=== PATIENT | female | born 1950 | race Caucasian/White ===

== ENCOUNTER 2017-09-26 09:57 | Outpatient (CLI) | payer MEDICARE, BC ==
--- NOTE | 2017-09-27 09:15 | MMO ---
BILATERAL DIGITAL SCREENING MAMMOGRAMS: History: 67-year-old female presents for digital screening mammography. Comparison: 09-22-16, 08-12-15, 07-25-14, 07-25-13 This study is interpreted with the assistance of computer aided detection. FINDINGS: Scattered areas of fibroglandular density are noted bilaterally. There are some stable typically regan gn calcifications. No direct or indirect evidence of malignancy. IMPRESSION: BIRADS category 2 - benign findings. Continues routine screening. POS: [facility]
== END 2017-09-26 09:58 | disposition home or self-care (01) ==
LOC: SCSMAMMO 09:57
PROVIDERS: ATTEND Obstetrics & Gynecology
DX: Z12.31 Encounter for screening mammogram for malignant neoplasm of breast (principal)
CPT/HCPCS: 77067

== ENCOUNTER 2018-11-09 10:11 | Outpatient (CLI) | payer MEDICARE, BC ==
--- NOTE | 2018-11-28 15:53 | MMO ---
Bilateral MAMMO Bilat Screen [facility]. CLINICAL HISTORY: Patient is 68 years old and is seen for screening. The patient has no family history of breast cancer. The patient has no personal history of cancer. VIEWS: The views performed were: bilateral craniocaudal and bilateral mediolateral oblique. FILMS COMPARED: The present examination has been compared to prior imaging studies performed at [facility] on 07/25/2014, 08/12/2015 and 09/22/2016. This study has been interpreted with the assistance of computer-aided detection. MAMMOGRAM FINDINGS: There are scattered fibroglandular densities. There are stable benign appearing calcifications seen in both breasts. There are also vascular calcifications. There are benign scattered densities in both breasts. There are no suspicious masses, suspicious calcifications, or new areas of architectural distortion. IMPRESSION: THERE IS NO MAMMOGRAPHIC EVIDENCE OF MALIGNANCY. A ROUTINE FOLLOW-UP MAMMOGRAM IN 1 YEAR IS RECOMMENDED. ACR BI-RADS Category 2 - Benign finding MAMMOGRAPHY NOTE: 1. A negative mammogram report should not delay a biopsy if a dominant of clinically suspicious mass is present. 2. Approximately 10% to 15% of breast cancers are not detected by mammography. 3. Adenosis and dense breasts may obscure an underlying neoplasm.
== END 2018-11-09 10:12 | disposition home or self-care (01) ==
LOC: SCSMAMMO 10:11
PROVIDERS: ATTEND Internal Medicine
DX: Z12.31 Encounter for screening mammogram for malignant neoplasm of breast (principal)
CPT/HCPCS: 77067